=== PATIENT | female | born 1985 | race Hispanic/Latino ===

== ENCOUNTER 2024-11-23 14:41 | Emergency (ER) | payer BC ==
[2024-11-23] MEDS ORDERED: Metoclopramide HCl 10 MG (2 mL) VIAL ONE (15:20)
[2024-11-23 16:08] LABS: Pregnancy Test - Urine (BHCG) Negative (Negative); Pregu Control Background? CLEAR/WHITE (CLR/WHITE); Pregu Control Bar Appear? YES (CONTROL BAR); Specific Gravity 1.015 (1.002-1.036)
== END 2024-11-23 16:37 | disposition home or self-care (01) ==
LOC: CSHERS 14:41
DX: G44.209 Tension-type headache, unspecified, not intractable (principal); E11.9 Type 2 diabetes mellitus without complications
CPT/HCPCS: 70450; 81025; 96372; J2765